=== PATIENT | female | born 1970 | race American Indian/Alaskan Native ===

== ENCOUNTER 2019-01-02 15:49 | Emergency (ER) | payer BC ==
[2019-01-02] MEDS ORDERED: ZOFRAN ODT PO ONE (17:10)
--- NOTE | 2019-01-02 17:10 | Emergency Department Report ---
Blank Doc - Documentation Documentation: This is a 48 y.o. female that presents with N/V that started today. Patient r eports vomiting yellow bowel. States was at a patient house when symptoms started today. Denies diarrhea and abdominal pain. She reports one episode last week that resolved. This initial assessment diagnostic orders/clinical plan/treatment(s) is/are subject to change based on patient's health status, clinical progression and re- assessment by fellow clinical providers in the ED. Further treatment and workup at subsequent clinical providers discretion. Patient/guardians urged not to elope from ED s their condition may be serious if not clinically assessed and managed. Initial orders include: 1- Labs Fast track for further evaluation.
[2019-01-02 17:34] LABS: Bilirubin,Urine NEG (Negative); Blood,Urine NEG (Negative); Color,Urine Yellow (Yellow); Mucus,Urine FEW /HPF; Protein,Urine <15 mg/dL mg/dL (Negative); Urobilinogen,Urine < 2.0 mg/dL (<2.0); WBC,Urine < 1.0 /HPF (0.0-6.0)
[2019-01-02] MEDS ORDERED: ZOFRAN IV ONE (19:41)
[2019-01-02] MEDS ORDERED: NACL 0.9% 1000 ML 1,000 ML IV ONE (19:41)
[2019-01-02] MEDS ORDERED: TORADOL IV ONE (19:41)
--- NOTE | 2019-01-02 20:19 | Emergency Department Report ---
ED Abdominal Pain HPI - General Chief Complaint: Nausea/Vomiting/Diarrhea Stated Complaint: VOMITING Time Seen by Provider: 01/02/19 17:06 Source: patient Mode of arrival: Wheelchair Limitations: No Limitations - History of Present Illness Initial Comments: This is a 48 y.o. female that presents with N/V that started today. Patient reports vomiting yellow bowel. States was at a patient house when symptoms started today. Denies diarrhea and abdominal pain. She reports one episode last week that resolved. symptom are exacerbated by po intake , symptoms are resolved npo MD Complaint: abdominal pain Onset/Timin -: week(s) Location: diffuse Radiation: LLQ Migration to: LLQ Severity: moderate Severity scale (0 -10): 4 Quality: cramping, aching Consistency: constant Improves With: nothing Worsens With: eating, movement Associated Symptoms: nausea, vomiting. denies: diarrhea, fever, chills, constipation, dysuria, hematemesis, hematochezia, melena, hematuria, syncope - Related Data LMP Date: 12/18/18 Previous Rx's Medication Instructions Recorded Last Taken Type Ondansetron [Zofran Odt] 4 mg PO Q8HR PRN #12 tab.rapdis 01/02/19 Unknown Rx Allergies Allergy/AdvReac Type Severity Reaction Status Date / Time No Known Allergies Allergy Unverified 01/02/19 17:09 ED Review of Systems ROS: Stated complaint: VOMITING Other details as noted in HPI Constitutional: denies: chills, fever Eyes: denies: eye pain, eye discharge, vision change ENT: throat pain, congestion. denies: ear pain Respiratory: denies: cough, shortness of breath, wheezing Cardiovascular: denies: chest pain, palpitations Endocrine: no symptoms reported Gastrointestinal: abdominal pain, nausea, vomiting. denies: diarrhea, constipation, hematemesis, melena, hematochezia Genitourinary: denies: urgency, dysuria, frequency, hematuria, discharge Musculoskeletal: denies: back pain, joint swelling, arthralgia Skin: denies: rash, lesions Neurological: denies: headache, weakness, paresthesias, vertigo Psychiatric: denies: anxiety, depression Hematological/Lymphatic: denies: easy bleeding, easy bruising ED Past Medical Hx - Past Medical History Previous Medical History?: No - Surgical History Past Surgical History?: Yes Additional Surgical History: c section and fibroids - Social History Smoking Status: Never Smoker Substance Use Type: Alcohol - Medications Home Medications: Home Medications Medication Instructions Recorded Confirmed Last Taken Type Ondansetron [Zofran Odt] 4 mg PO Q8HR PRN #12 tab.rapdis 01/02/19 Unknown Rx ED Physical Exam - General Limitations: No Limitations General appearance: alert, in no apparent distress - Head Head exam: Present: atraumatic, normocephalic - Eye Eye exam: Present: normal appearance - ENT ENT exam: Present: normal orophraynx, mucous membranes moist - Neck Neck exam: Present: normal inspection, full ROM. Absent: tenderness, lymphadenopathy, thyromegaly - Respiratory Respiratory exam: Present: normal lung sounds bilaterally. Absent: respiratory distress, wheezes, stridor, chest wall tenderness - Cardiovascular Cardiovascular Exam: Present: regular rate, normal rhythm, normal heart sounds. Absent: systolic murmur, diastolic murmur, rubs, gallop - GI/Abdominal GI/Abdominal exam: Present: soft, normal bowel sounds. Absent: distended, tenderness, guarding, rebound, rigid, bruit, hernia - Expanded GI/Abdominal Exam Expanded GI/Abdominal exam: Absent: psoas sign, obturator sign, heel tap sign, Calderon's sign, Rovsing's sign, tenderness at Mcburney's Point, ascites - Rectal Rectal exam: Present: deferred - Extremities Exam Extremities exam: Present: normal inspection, full ROM. Absent: tenderness - Back Exam Back exam: Present: normal inspection, full ROM. Absent: tenderness, CVA tenderness (R), CVA tenderness (L), muscle spasm, rash noted - Neurological Exam Neurological exam: Present: alert, oriented X3, CN II-XII intact, normal gait - Psychiatric Psychiatric exam: Present: normal affect, normal mood - Skin Skin exam: Present: warm, dry, intact, normal color. Absent: rash ED Course Vital Signs 01/02/19 01/02/19 16:23 17:06 Temperature 97.7 F 97.7 F Pulse Rate 100 H 100 H Respiratory 16 18 Rate Blood Pressure 120/81 Blood Pressure 120/81 [Right] O2 Sat by Pulse 99 99 Oximetry ED Medical Decision Making - Lab Data Result diagrams: 01/02/19 20:48 01/02/19 20:48 Labs 01/02/19 01/02/19 01/02/19 17:22 20:48 20:48 WBC 13.5 H RBC 4.50 Hgb 12.9 Hct 39.3 MCV 87 MCH 29 MCHC 33 RDW 13.2 Plt Count 312 Seg Neutrophils % Splicing Machine Operator Automatic Sodium 142 Potassium 4.1 Chloride 101.6 Carbon Dioxide 27 Anion Gap 18 BUN 16 Creatinine 0.9 Estimated GFR > 60 BUN/Creatinine Ratio 18 Glucose 112 H Calcium 9.5 Total Bilirubin 0.30 AST 22 ALT 18 Alkaline Phosphatase 71 Total Protein 8.5 H Albumin 4.9 Albumin/Globulin Ratio 1.4 Lipase 19 HCG, Qual Urine Color Yellow Urine Turbidity Clear Urine pH 6.0 Ur Specific [place] 1.025 Urine Protein <15 mg/dl Urine Glucose (UA) Neg Urine Ketones Neg Urine Blood Neg Urine Nitrite Neg Urine Bilirubin Neg Urine Urobilinogen < 2.0 Ur Leukocyte Esterase Neg Urine WBC (Auto) < 1.0 Urine RBC (Auto) 1.0 U Epithel Cells (Auto) < 1.0 Urine Mucus Few 01/02/19 20:48 WBC RBC Hgb Hct MCV MCH MCHC RDW Plt Count Seg Neutrophils % Sodium Potassium Chloride Carbon Dioxide Anion Gap BUN Creatinine Estimated GFR BUN/Creatinine Ratio Glucose Calcium Total Bilirubin AST ALT Alkaline Phosphatase Total Protein Albumin Albumin/Globulin Ratio Lipase HCG, Qual Negative Urine Color Urine Turbidity Urine pH Ur Specific [place] Urine Protein Urine Glucose (UA) Urine Ketones Urine Blood Urine Nitrite Urine Bilirubin Urine Urobilinogen Ur Leukocyte Esterase Urine WBC (Auto) Urine RBC (Auto) U Epithel Cells (Auto) Urine Mucus - Medical Decision Making pt refuse kub, or furhter diagnostics, Patient advises all symptoms are resolved tolerating by mouth intake no fever no chills no abdominal pain no nausea vomiting noted and related CBC for wbc's of 13.5 patient taking diet pills twice a day very little by mouth water intake plan continue to hydrate as directed, ADA diet, follow up with pcp in 2-3 days return to ed if symptoms worsen. pt verbalized agreement and understanding of discharge plan. Critical care attestation.: If time is entered above; I have spent that time in minutes in the direct care of this critically ill patient, excluding procedure time. ED Disposition Clinical Impression: Nausea & vomiting Qualifiers: Vomiting type: unspecified Vomiting Intractability: non-intractable Qualified Code(s): R11.2 - Nausea with vomiting, unspecified Disposition: DC-01 TO HOME OR SELFCARE Is pt being admited?: No Does the pt Need Aspirin: No Condition: Stable Instructions: Acute Nausea and Vomiting (ED) Prescriptions: Ondansetron [Zofran Odt] 4 mg PO Q8HR PRN #12 tab.rapdis PRN Reason: Nausea And Vomiting Referrals: REBEKA DICKENS MD [Referring] - 3-5 Days Forms: Work/School Release Form(ED) Time of Disposition: 22:18
[2019-01-02 21:13] LABS: Alanine Aminotransferase 18 units/L (7-56); Albumin 4.9 g/dL (3.9-5); BUN/Creatinine Ratio 18; Blood Urea Nitrogen 16 mg/dL (7-17); Calcium 9.5 mg/dL (8.4-10.2); Hemolysis Index 11
[2019-01-02 21:48] LABS: Hematocrit 39.3 % (30.3-42.9); Hemoglobin 12.9 gm/dl (10.1-14.3); Mean Corpuscular HGB Conc 33 % (30-34); Mean Corpuscular Volume 87 fl (79-97); Platelet Count 312 K/mm3 (140-440); Red Cell Distribution Width 13.2 % (13.2-15.2)
[2019-01-02 22:27] LABS: Band Neutrophils # (Manual) 1.4 K/mm3; Basophils % (Manual) 0 % (0.0-1.8); Total Cells Counted 100
[2019-01-02 22:28] LABS: Ovalocytes 2+
[2019-01-02 22:31] VITALS: BP 118/74
== END 2019-01-02 22:31 | disposition home or self-care (01) ==
LOC: ED 15:49
DX: R11.2 Nausea with vomiting, unspecified (principal)
CPT/HCPCS: 36415; 80053; 81001; 83690; 84703; 85007; 85025; 96361; 96374; 96375; 99283; J1885; J2405; J7030; Q0162